=== PATIENT | male | born 1975 | race Two or more races ===

== ENCOUNTER 2023-03-11 18:17 | Emergency (ER) | payer OTHER ==
[~2023-03-11] VITALS: Ht 177.8 cm; Wt 98.9 kg
[2023-03-12] MEDS ORDERED: DOLOGEN CAPLET1 EACH PO (01:45)
== END 2023-03-12 02:27 | disposition home or self-care (01) ==
LOC: ER 18:17
DX: B34.9 Viral infection, unspecified (principal); Z20.822 Contact with and (suspected) exposure to COVID-19